=== PATIENT | female | born 1965 | race Caucasian/White ===

== ENCOUNTER → 2018-11-30 | Outpatient (CLI) | payer BC | LOC: MC.RAD 10:52 | DX: Z12.31 Encounter for screening mammogram for malignant neoplasm of breast (principal) ==

== ENCOUNTER 2019-04-06 08:24 | Emergency (ER) | payer BC ==
[~2019-04-06] VITALS: Ht 152.4 cm; Wt 79.5 kg
[2019-04-06 08:28] VITALS: BP 175/97; TEMP 98.1
[2019-04-06] MEDS ORDERED: PREDNISONE10 MG PO (08:50)
[2019-04-06] MEDS ORDERED: SYNTHROID0.125 MG/T PO (09:01)
[2019-04-06 09:18] VITALS: PULSE 85
== END 2019-04-06 09:18 | disposition home or self-care (01) ==
LOC: COL.ER 08:24
DX: L25.9 Unspecified contact dermatitis, unspecified cause (principal); J45.909 Unspecified asthma, uncomplicated; E03.9 Hypothyroidism, unspecified
CPT/HCPCS: J1040

== ENCOUNTER → 2019-07-30 | Outpatient (CLI) | payer BC ==
[~2019-07-30] VITALS: Ht 152.4 cm; Wt 86.5 kg
[~2019-07-30] MED LIST: ADVIL PM 38 MG-1 TAB PO; ASPIRIN 32325 MG/TAB PO; B COMPLEX #11 TAB PO; LEVOXYL0.125 MG PO; MELATONIN5 M1 SL; MUCINEX1200 MG PO; PREDNISONE10 MG PO; SYNTHROID0.125 MG/T PO; TURMERIC500 MG PO; ZYRTEC 10MG10 MG PO; [UNRECOGNIZED DRUG - OTHER] PO
[2019-07-30 12:08] VITALS: BP 143/96; PULSE 81
[2019-07-30 12:55] VITALS: BP 154/100; PULSE 77
== END ==
LOC: COL.RAD 11:45
DX: M48.061 Spinal stenosis, lumbar region without neurogenic claudication (principal); M51.36 Other intervertebral disc degeneration, lumbar region; M43.17 Spondylolisthesis, lumbosacral region
CPT/HCPCS: J3301

== ENCOUNTER → 2019-10-31 | Outpatient (CLI) | payer BC ==
[~2019-10-31] VITALS: Ht 152.4 cm; Wt 82.2 kg
[~2019-10-31] MED LIST changes: +00186-0370-20 IH; +00186-0372-20 IH; +PHENTERMINE15 MG PO; +SYNTHROID 0.10.15 MG PO; +flaxseed PO
[2019-10-31 09:54] VITALS: BP 139/93; PULSE 82
[2019-10-31 10:50] VITALS: BP 144/88; PULSE 75
--- NOTE | 2019-10-31 11:15 | NUR ---
pt taken to [facility] and there to take her home
== END ==
LOC: COL.RAD 09:30
DX: M48.061 Spinal stenosis, lumbar region without neurogenic claudication (principal)
CPT/HCPCS: J3301

== ENCOUNTER 2021-03-29 20:44 | Emergency (ER) | payer OTHER, BC ==
[2021-03-29 20:53] VITALS: TEMP 98.4
[2021-03-29 21:41] LABS: BASO % 0.2 % (0.0-2.0); EOS # 0.1 (0.0-0.7); EOS % 1.2 % (0-4.0); GRAN # 8.3 (1.4-6.5); GRAN % 76.2 % (42.2-75.2); HEMATOCRIT 38.2 % (37.0-47.0); HEMOGLOBIN 12.5 g/dl (12.5-16.0); LYMPH # 1.5 (1.2-3.4); LYMPH % 13.9 % (20.0-51.0); MEAN CELL VOLUME 83 fl (80.0-100.0); MEAN CORPUSCULAR HEMOGLOBIN 27 pg (27.0-31.0); MEAN CORPUSCULAR HGB CONC 33 g/dl (33.0-37.0); MONO # 0.9 (0.1-0.6); PLATELET COUNT 305 K/mm3 (130-400); RED BLOOD COUNT 4.63 M/mm3 (4.10-5.30); REDCELL DISTRIBUTION WIDTH-CV 15.9 % (11.5-14.5)
[2021-03-29 22:05] LABS: ALANINE AMINOTRANSFERASE 17 U/L (0-55); ALBUMIN 3.8 gm/dL (3.5-5.0); ALKALINE PHOSPHATASE 113 U/L (0-750); ANION GAP 14 mmol/L (7-16); AST,SGOT 27 U/L (5-34); BILIRUBIN,TOTAL 0.2 mg/dL (0.2-1.2); BLOOD UREA NITROGEN 25 mg/dL (10-20); CALCIUM 9.3 mg/dL (8.4-10.2); CARBON DIOXIDE 22 mmol/L (22-29); CHLORIDE 107 mmol/L (98-107); CREATININE, serum 1.16 mg/dL (0.57-1.11); GLUCOSE 95 mg/dL (70-99); POTASSIUM 3.9 mmol/L (3.5-4.5); SODIUM 143 mmol/L (136-145); TOTAL PROTEIN 7.2 gm/dL (6.2-8.1)
[2021-03-29 22:07] LABS: ALCOHOL(ethanol),MEDICAL < 10 mg/dL (0-10)
[2021-03-29 23:10] VITALS: BP 131/71; PULSE 87
== END 2021-03-29 23:10 | disposition home or self-care (01) ==
LOC: COL.ER 20:44
PROVIDERS: Family Medicine
DX: S29.9XXA Unspecified injury of thorax, initial encounter (principal); S09.90XA Unspecified injury of head, initial encounter; V89.2XXA Person injured in unspecified motor-vehicle accident, traffic, initial encounter; M47.816 Spondylosis without myelopathy or radiculopathy, lumbar region
CPT/HCPCS: Q9967

== ENCOUNTER → 2022-04-28 | Outpatient (CLI) | payer BC ==
[~2022-04-28] VITALS: Ht 152.5 cm; Wt 84.2 kg
[2022-04-28] VITALS (7 sets, daily range): BP systolic 125–150; BP diastolic 80–98; PULSE 71–122; TEMP 97.8
[~2022-04-28] MED LIST changes: +ASPIRIN E.C. 8181 MG PO; +LASIX 40MG TABL40 MG PO; +NATURAL MAGNES200 MG PO; +NEURONTIN300 MG/CAP PO; +VITAMIN B COMPL1 SGL PO; +VITAMIN D31000 I1 PO
== END ==
LOC: COL.CARD 10:18
DX: R07.9 Chest pain, unspecified (principal)
CPT/HCPCS: A9500